=== PATIENT | female | born 1985 | race Caucasian/White ===

== ENCOUNTER 2016-06-24 01:55 | Emergency (ER) | payer BC ==
[~2016-06-24] VITALS: Ht 165.1 cm; Wt 104.5 kg
[~2016-06-24 01:55] MED LIST: ALBUTEROL0.09 MG/A1 IH; AMOXICILLIN 50500 MG PO; AMOXICILLIN875 MG; BACTRIM DS 8001 TAB PO; CEPHALEXIN500 M1 PO; CLEOCIN HCL300 MG PO; FLEXERIL 1010 MG/TAB PO; LEXAPRO 10MG10 MG PO; LORTAB 5/500 501 TAB; LORTAB 5/500 501 TAB PO; NAPROSYN PO; NO HOME MEDICATIONS; NORCO 325 MG-51 TAB PO; OTC MEDS; PERCOCET 325 MG1 TA2 PO; PHENERGAN 25 TA25 MG PO; PRENATAL1 TA1; SEPTRA DS 8001 TAB PO; TUSS PO; TYLENOL #3 301 UDTAB PO; ZITHROMAX Z PA250 MG PO
[2016-06-24 01:59] VITALS: TEMP 97.9
[2016-06-24] MEDS ORDERED: PRENATAL1 TA7 PO (02:03)
[2016-06-24 02:42] LABS: BASO # 0.1 (0.0-0.2); BASO % 0.4 % (0.0-2.0); EOS # 0.2 (0.0-0.7); EOS % 1.4 % (0-4.0); GRAN # 8.3 (1.4-6.5); GRAN % 70.1 % (42.2-75.2); HEMATOCRIT 42.7 % (37.0-47.0); HEMOGLOBIN 14.9 g/dl (12.5-16.0); LYMPH # 2.2 (1.2-3.4); LYMPH % 18.8 % (20.0-51.0); MEAN CELL VOLUME 89 fl (80.0-100.0); MEAN CORPUSCULAR HEMOGLOBIN 31 pg (27.0-31.0); MEAN CORPUSCULAR HGB CONC 35 g/dl (33.0-37.0); MEAN PLATELET VOLUME 10.5 fl (7.4-10.4); MONO % 8.7 % (1.7-9.3); PLATELET COUNT 250 K/mm3 (130-400); RED BLOOD COUNT 4.78 M/mm3 (4.10-5.30); REDCELL DISTRIBUTION WIDTH-CV 12.3 % (11.5-14.5); WHITE BLOOD COUNT 11.8 K/mm3 (4.8-10.8)
[2016-06-24 02:46] LABS: PH 5 (5-8); URINE APPEARANCE Clear; URINE BACTERIA None Seen /hpf; URINE BILIRUBIN Negative (NEGATIVE); URINE BLOOD 1+ (NEGATIVE); URINE COLOR Yellow; URINE GLUCOSE Negative (NEGATIVE); URINE KETONE Negative (NEGATIVE); URINE UROBILINOGEN Negative (NEGATIVE)
[2016-06-24 02:51] LABS: URINE WBC 0-2 /hpf
[2016-06-24 02:53] LABS: CALCIUM 8.9 mg/dL (8.4-10.2); CREATININE, serum 0.64 mg/dL (0.52-1.25); POTASSIUM 3.6 mmol/L (3.4-5.0)
[2016-06-24 02:54] LABS: ADJUSTED CALCIUM 8.6 mg/dL (8.4-10.2); ALBUMIN 4.4 gm/dL (3.5-5.0); BILIRUBIN,TOTAL 0.5 mg/dL (0.0-1.0); C-REACTIVE PROTEIN 0.6 mg/dL (0.0-0.9); TOTAL PROTEIN 7.5 gm/dL (6.4-8.2)
[2016-06-24] MEDS ORDERED: VOLTAREN 75 DR75 MG PO (04:04)
[2016-06-24] MEDS ORDERED: FLEXERIL 1010 MG/TAB PO (04:04)
[2016-06-24 04:39] VITALS: BP 102/73; PULSE 66
== END 2016-06-24 04:40 | disposition home or self-care (01) ==
LOC: COL.ER 01:55
PROVIDERS: Physician Assistant
DX: M54.5 Low back pain (principal); Z87.442 Personal history of urinary calculi; R10.817 Generalized abdominal tenderness
CPT/HCPCS: J1885; J2360; J2550; J3010; J7030; Q9967

== ENCOUNTER 2016-10-10 19:01 | Emergency (ER) | payer BC ==
[~2016-10-10] VITALS: Ht 165.1 cm; Wt 104.5 kg
[~2016-10-10 19:01] MED LIST changes: +PRENATAL1 TA7 PO; +VOLTAREN 75 DR75 MG PO
[2016-10-10 19:05] VITALS: BP 128/75; TEMP 98.9
[2016-10-10 20:18] VITALS: PULSE 76
== END 2016-10-10 20:18 | disposition home or self-care (01) ==
LOC: COL.ER 19:01
DX: M25.512 Pain in left shoulder (principal); F17.210 Nicotine dependence, cigarettes, uncomplicated; Z90.49 Acquired absence of other specified parts of digestive tract; Z98.890 Other specified postprocedural states; Z87.39 Personal history of other diseases of the musculoskeletal system and connective tissue; X50.0XXA Overexertion from strenuous movement or load, initial encounter; Y92.69 Other specified industrial and construction area as the place of occurrence of the external cause

== ENCOUNTER 2017-04-23 20:52 | Emergency (ER) | payer BC ==
[~2017-04-23] VITALS: Ht 165.1 cm; Wt 100.0 kg
[2017-04-23 20:55] VITALS: BP 130/72; TEMP 97.5
[2017-04-23 22:33] VITALS: PULSE 85
== END 2017-04-23 22:20 | disposition home or self-care (01) ==
LOC: COL.ER 20:52
DX: J02.9 Acute pharyngitis, unspecified (principal); F17.210 Nicotine dependence, cigarettes, uncomplicated

== ENCOUNTER 2017-08-30 16:30 | Emergency (ER) | payer BC ==
[~2017-08-30] VITALS: Ht 165.1 cm; Wt 101.2 kg
[2017-08-30 17:13] LABS: COLLECTION METHOD CLEAN CATCH
[2017-08-30 17:16] LABS: HEMATOCRIT 43.3 % (37.0-47.0); HEMOGLOBIN 15.3 g/dl (12.5-16.0); MEAN CELL VOLUME 88 fl (80.0-100.0); MEAN CORPUSCULAR HEMOGLOBIN 31 pg (27.0-31.0); MEAN CORPUSCULAR HGB CONC 35 g/dl (33.0-37.0); MEAN PLATELET VOLUME 10.4 fl (7.4-10.4); PLATELET COUNT 273 K/mm3 (130-400); RED BLOOD COUNT 4.95 M/mm3 (4.10-5.30); REDCELL DISTRIBUTION WIDTH-CV 12.2 % (11.5-14.5)
[2017-08-30 17:26] LABS: AMORPHOUS CRYSTAL Present /uL; BUDDING YEAST Present /hpf; MUCOUS Present /lpf; PH 6 (5-8); SQUAMOUS EPITHELIAL 0-2 /hpf; URINE APPEARANCE Cloudy; URINE BACTERIA Rare /hpf; URINE BILIRUBIN Negative (NEGATIVE); URINE BLOOD 3+ (NEGATIVE); URINE COLOR Yellow; URINE GLUCOSE Negative (NEGATIVE); URINE KETONE Negative (NEGATIVE); URINE LEUKOCYTE ESTERASE 3+ (NEGATIVE); URINE NITRATE Positive (NEGATIVE); URINE PROTEIN(semi-quant) 2+ (NEGATIVE); URINE RBC >50 /hpf; URINE UROBILINOGEN Negative (NEGATIVE)
[2017-08-30 17:28] LABS: ALBUMIN 4.4 gm/dL (3.5-5.0); BILIRUBIN,TOTAL 0.5 mg/dL (0.0-1.0); C-REACTIVE PROTEIN 2.1 mg/dL (0.0-0.9); CALCIUM 9.3 mg/dL (8.4-10.2); CREATININE, serum 0.62 mg/dL (0.52-1.25); POTASSIUM 3.6 mmol/L (3.4-5.0); TOTAL PROTEIN 8.1 gm/dL (6.4-8.2)
[2017-08-30 18:09] LABS: BAND 3 % (0-10); LYMPHOCYTE 8 % (20.0-51.0); NEUTROPHILS 87 % (42.0-75.2); PLATELET ESTIMATE NORMAL (NORMAL)
[2017-08-30] MEDS ORDERED: AMOXICILLIN 8751 TAB PO (18:54)
[2017-08-30 19:30] VITALS: BP 111/64; PULSE 71; TEMP 97.3
== END 2017-08-30 19:30 | disposition home or self-care (01) ==
LOC: COL.ER 16:30
PROVIDERS: Family Medicine
DX: T18.3XXA Foreign body in small intestine, initial encounter (principal); N12 Tubulo-interstitial nephritis, not specified as acute or chronic; Z90.89 Acquired absence of other organs
CPT/HCPCS: J0696; J1170; J1885; J2550; J7030; Q9967

== ENCOUNTER 2018-05-09 12:19 | Emergency (ER) | payer BC ==
[~2018-05-09] VITALS: Ht 165.1 cm; Wt 104.5 kg
[~2018-05-09 12:19] MED LIST changes: +AMOXICILLIN 8751 TAB PO; +OMNICEF 300MG300 MG PO
[2018-05-09 12:25] VITALS: BP 137/68; TEMP 99.1
[2018-05-09 13:22] LABS: BASO # 0.1 (0.0-0.2); BASO % 0.4 % (0.0-2.0); EOS # 0.1 (0.0-0.7); GRAN # 9.5 (1.4-6.5); HEMATOCRIT 40.9 % (37.0-47.0); HEMOGLOBIN 14.1 g/dl (12.5-16.0); LYMPH # 2.7 (1.2-3.4); MEAN CELL VOLUME 90 fl (80.0-100.0); MEAN CORPUSCULAR HEMOGLOBIN 31 pg (27.0-31.0); MEAN CORPUSCULAR HGB CONC 35 g/dl (33.0-37.0); MONO # 0.9 (0.1-0.6); MONO % 6.6 % (1.7-9.3); PLATELET COUNT 233 K/mm3 (130-400); RED BLOOD COUNT 4.55 M/mm3 (4.10-5.30); REDCELL DISTRIBUTION WIDTH-CV 12.4 % (11.5-14.5)
[2018-05-09 14:35] VITALS: PULSE 80
== END 2018-05-09 14:35 | disposition home or self-care (01) ==
LOC: COL.ER 12:19
PROVIDERS: Family Medicine
DX: O03.4 Incomplete spontaneous abortion without complication (principal)

== ENCOUNTER 2018-05-11 13:40 | Emergency (ER) | payer BC ==
[~2018-05-11] VITALS: Ht 165.1 cm; Wt 104.5 kg
[2018-05-11 13:46] VITALS: BP 140/78; TEMP 98.3
[2018-05-11 14:24] LABS: BASO # 0.1 (0.0-0.2); BASO % 0.5 % (0.0-2.0); EOS # 0.2 (0.0-0.7); EOS % 1.4 % (0-4.0); GRAN # 8.8 (1.4-6.5); GRAN % 65.7 % (42.2-75.2); HEMATOCRIT 42.2 % (37.0-47.0); HEMOGLOBIN 14.6 g/dl (12.5-16.0); LYMPH # 3.4 (1.2-3.4); LYMPH % 25.5 % (20.0-51.0); MEAN CELL VOLUME 89 fl (80.0-100.0); MEAN CORPUSCULAR HEMOGLOBIN 31 pg (27.0-31.0); MEAN CORPUSCULAR HGB CONC 35 g/dl (33.0-37.0); MONO # 0.8 (0.1-0.6); MONO % 5.7 % (1.7-9.3); PLATELET COUNT 273 K/mm3 (130-400); RED BLOOD COUNT 4.72 M/mm3 (4.10-5.30); REDCELL DISTRIBUTION WIDTH-CV 12.3 % (11.5-14.5)
[2018-05-11 14:42] LABS: ALBUMIN 4.4 gm/dL (3.5-5.0); BILIRUBIN,TOTAL 0.2 mg/dL (0.0-1.0); CALCIUM 9.4 mg/dL (8.4-10.2); CREATININE, serum 0.68 mg/dL (0.52-1.25); POTASSIUM 3.6 mmol/L (3.4-5.0); TOTAL PROTEIN 7.4 gm/dL (6.4-8.2)
[2018-05-11 15:23] VITALS: PULSE 88
== END 2018-05-11 15:23 | disposition home or self-care (01) ==
LOC: COL.ER 13:40
PROVIDERS: Emergency Medicine
DX: N93.9 Abnormal uterine and vaginal bleeding, unspecified (principal); Z98.890 Other specified postprocedural states; Z3A.01 Less than 8 weeks gestation of pregnancy

== ENCOUNTER → 2018-08-24 | Outpatient (CLI) | payer BC | LOC: COL.RAD 07:45 | DX: Z31.41 Encounter for fertility testing (principal) | CPT/HCPCS: Q9967 ==